=== PATIENT | male | born 1985 | race Caucasian/White ===

== ENCOUNTER 2017-09-01 13:32 | Emergency (ER) ==
[2017-09-01 13:36] VITALS: BP 124/84; TEMP 97.6; BMI 30.7
--- NOTE | 2017-09-01 14:39 | ED.PDOC ---
General ED Provider: Dr. JESSICA HERNANDEZ Chief Complaint: Earache Stated Complaint: right ear pain Time Seen by Physician: 13:35 Mode of Arrival: Walk-In Information Source: Patient Exam Limitations: No limitations Nursing and Triage Documentation Reviewed and Agree: Yes Reviewed sepsis parameters & appropriate labs ordered?: Yes System Inflammatory Response Syndrome: Not Applicable Sepsis Protocol: For patient's 13 years and over: Temp is 96.8 and below OR 101 and greater Pulse >90 BPM Resp >20/minute Acutely Altered Mental Status Are patient's symptoms suggestive of a new infection, such as: -Pneumonia -Skin, Soft Tissue -Endocarditis -UTI -Bone, Joint Infection -Implantable Device -Acute Abdominal Infection -Wound Infection -Meningitis -Blood Stream Catheter Infection -Unknown System Inflammatory Response Syndrome: Not Applicable EENT Complaint Exam - Ear Complaint/Exam Onset/Duration: 1week Symptoms Are: Still present Timing: Intermittent Initial Severity: Moderate Current Severity: Mild Character: Reports: Dull pain Aggravating: Reports: None Alleviating: Reports: None Associated Signs and Symptoms: Denies: Ear trauma, Ear swelling, Discharge, Fever, Hearing loss, Bleeding, Sore throat, Headache, URI symptoms, Foreign body sensation, Rash, Pain to external ear, Pain to external face Ear Surgical History: None Vesicles to External Pinna: No Vesicles to Tragus: No TMJ Tenderness: None Mastoid Tenderness: None Tragal Tenderness: None External Canal: Normal Tympanic Membrane: Erythema (right) Differential Diagnoses: Otitis Media Review of Systems - Review Of Systems Constitutional: Reports: No symptoms Eyes: Reports: No symptoms Ears, Nose, Mouth, Throat: Reports: Ear pain Respiratory: Reports: No symptoms Cardiac: Reports: No symptoms GI: Reports: No symptoms : Reports: No symptoms Musculoskeletal: Reports: No symptoms Skin: Reports: No symptoms Neurological: Reports: No symptoms Endocrine: Reports: No symptoms Hematologic/Lymphatic: Reports: No symptoms All Other Systems: Reviewed and Negative Past Medical History - Past Medical History Previously Healthy: Yes Endocrine: Reports: None Cardiovascular: Reports: None Respiratory: Reports: None Hematological: Reports: None Gastrointestinal: Reports: None Genitourinary: Reports: None Neuro/Psych: Reports: None Musculoskeletal: Reports: None Cancer: Reports: None - Surgical History General Surgical History: Reports: None - Family History Family History: Reports: None - Social History Smoking Status: Current every day smoker, Heavy tobacco smoker Hx Substance Use: No Alcohol Screening: None - Immunizations Tetanus Shot up to Date: No Physical Exam - Physical Exam Appearance: Well-appearing, No pain distress, Well-nourished Eyes: PHILIP, EOMI, Conjunctiva clear ENT: Erythema (right ear, ipartially imacted ) Respiratory: Airway patent, Breath sounds clear, Breath sounds equal, Respirations nonlabored Cardiovascular: RRR, Pulses normal, No rub, No murmur GI/: Soft, Nontender, No masses, Bowel sounds normal, No Organomegaly Musculoskeletal: Normal strength, ROM intact, No edema, No calf tenderness Skin: Warm, Dry, Normal color Neurological: Sensation intact, Motor intact, Reflexes intact, Cranial nerves intact, Alert, Oriented Psychiatric: Affect appropriate, Mood appropriate Critical Care Note - Critical Care Note Total Time (mins): 0 Course - Course Vital Signs: Temp Pulse Resp BP Pulse Ox 09/01/17 13:33 97.6 F 88 16 124/84 96 Departure - Departure Time of Disposition: 14:39 Disposition: HOME SELF-CARE Discharge Problem: Ear infection Instructions: Earache (ED) Condition: Good Pt referred to PMD for follow-up: Yes IPMP verified?: No Additional Instructions: Please call your Family Physician as soon as possible to schedule a follow-up appointment. Allergies/Adverse Reactions: Allergies tetanus and diphtheria toxoids Adverse Reaction (Verified 09/01/17 13:37) tetanus immune globulin Adverse Reaction (Verified 09/01/17 13:37) tetanus toxoid, adsorbed Adverse Reaction (Verified 09/01/17 13:37) Tetanus Vaccines and Toxoid Adverse Reaction (Verified 09/01/17 13:37) Home Medications: Ambulatory Orders 1 [No Reported Medications] 09/01/17
== END 2017-09-01 14:45 | disposition home or self-care (01) ==
LOC: ED 13:32
DX: H66.91 Otitis media, unspecified, right ear (principal); F17.210 Nicotine dependence, cigarettes, uncomplicated
CPT/HCPCS: 99282

== ENCOUNTER 2017-11-27 18:50 | Emergency (ER) ==
[2017-11-27 19:02] VITALS: BP 123/84; TEMP 98.1
[2017-11-27] MEDS ORDERED: DECADRON 4 MG/ML SDV IM STA (19:29)
--- NOTE | 2017-11-27 19:32 | ED.PDOC ---
General ED Provider: Dr. MILLIE RETANA Chief Complaint: Shoulder Pain/Injury Stated Complaint: Patient had Injury to left shoulder in 2013, was treated as tendinitis, it got better,. 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 hurts to raise and move shoulder. Time Seen by Physician: 19:30 Mode of Arrival: Walk-In Information Source: Patient Nursing and Triage Documentation Reviewed and Agree: Yes Does patient meet sepsis criteria?: No If yes, has appropriate treatment been initiated?: No System Inflammatory Response Syndrome: Not Applicable Sepsis Protocol: For patient's 13 years and over: Temp is 96.8 and below OR 101 and greater Pulse >90 BPM Resp >20/minute Acutely Altered Mental Status Are patient's symptoms suggestive of a new infection, such as: -Pneumonia -Skin, Soft Tissue -Endocarditis -UTI -Bone, Joint Infection -Implantable Device -Acute Abdominal Infection -Wound Infection -Meningitis -Blood Stream Catheter Infection -Unknown Musculoskeletal Complaint Exam - Shoulder Pain Complaint/Exam Mechanism of Injury: Reports: No known trauma Symptoms Are: Still present Initial Severity: Moderate Current Severity: Mild Location: Reports: Discrete Character: Reports: Aching, Throbbing Alleviating: Reports: None Aggravating: Reports: Movement, Lifting, Flexion Associated Signs and Symptoms: Denies: Swelling, Redness, Bruising, Fever, Weakness, Numbness, Tingling Related History: Reports: Similar episode Non-Orthopedic Risk Factors: Reports: None DVT Risk Factors: Reports: None Septic Arthritis Risk Factors: Reports: None Related Surgical History: Reports: None Tenderness: Present: AC joint Limited Range of Motion: Present: Abduction, Adduction Differential Diagnoses: Sprain, Bursitis Review of Systems - Review Of Systems Constitutional: Reports: No symptoms Eyes: Reports: No symptoms Ears, Nose, Mouth, Throat: Reports: No symptoms Respiratory: Reports: No symptoms Cardiac: Reports: No symptoms GI: Reports: No symptoms : Reports: No symptoms Musculoskeletal: Reports: Joint pain Skin: Reports: No symptoms Neurological: Reports: No symptoms Endocrine: Reports: No symptoms Hematologic/Lymphatic: Reports: No symptoms All Other Systems: Reviewed and Negative Past Medical History - Past Medical History Previously Healthy: Yes Endocrine: Reports: None Cardiovascular: Reports: None Respiratory: Reports: None Hematological: Reports: None Gastrointestinal: Reports: None Genitourinary: Reports: None Neuro/Psych: Reports: None Musculoskeletal: Reports: None Cancer: Reports: None - Surgical History General Surgical History: Reports: None - Family History Family History: Reports: None - Social History Smoking Status: Current every day smoker, Heavy tobacco smoker Smoking Cessation Counseling Time: > 3 min - 10 min Hx Substance Use: No Alcohol Screening: None Physical Exam - Physical Exam Appearance: Well-appearing, No pain distress, Well-nourished Eyes: PHILIP, EOMI, Conjunctiva clear ENT: Ears normal, Nose normal, Oropharynx normal Respiratory: Airway patent, Breath sounds clear, Breath sounds equal, Respirations nonlabored Cardiovascular: RRR, Pulses normal, No rub, No murmur GI/: Soft, Nontender, No masses, Bowel sounds normal, No Organomegaly Musculoskeletal: Normal strength, ROM intact, No edema, No calf tenderness Skin: Warm, Dry, Normal color Neurological: Sensation intact, Motor intact, Reflexes intact, Cranial nerves intact, Alert, Oriented Psychiatric: Affect appropriate, Mood appropriate Critical Care Note - Critical Care Note Total Time (mins): 30 Course - Course Orders, Labs, Meds: Orders Category Date Time Status Dexamethasone 4 mg/ml Inj [Decadron 4 mg/ml Sdv] MEDS 11/27/17 19:29 Discontinued 4 mg IM ONCE STA Medications Discontinued Medications Generic Name Dose Route Start Last Admin Trade Name Malaika PRN Reason Stop Dose Admin Dexamethasone Sodium Phosphate 4 mg 11/27/17 19:29 Decadron 4 Mg/Ml Sdv IM 11/27/17 19:30 ONCE STA Vital Signs: Temp Pulse Resp BP Pulse Ox 11/27/17 18:58 98.1 F 69 18 123/84 96 Departure - Departure Time of Disposition: 19:33 Disposition: HOME SELF-CARE Discharge Problem: Shoulder pain Instructions: Shoulder Bursitis (ED) Condition: Stable Pt referred to PMD for follow-up: Yes IPMP verified?: No Additional Instructions: Gradual exercise Keep f/u with PMD Prescriptions: Prednisone 10 mg PO BIDWM #14 tablet Allergies/Adverse Reactions: Allergies tetanus and diphtheria toxoids Adverse Reaction (Verified 11/27/17 19:02) tetanus immune globulin Adverse Reaction (Verified 11/27/17 19:02) tetanus toxoid, adsorbed Adverse Reaction (Verified 11/27/17 19:02) Tetanus Vaccines and Toxoid Adverse Reaction (Verified 11/27/17 19:02) Home Medications: Ambulatory Orders Prednisone 10 mg PO BIDWM #14 tablet 11/27/17 Disposition Discussed With: Patient, Family
== END 2017-11-27 20:31 | disposition home or self-care (01) ==
LOC: ED 18:50
DX: M25.512 Pain in left shoulder (principal); F17.210 Nicotine dependence, cigarettes, uncomplicated
CPT/HCPCS: 96372; 99282

== ENCOUNTER 2018-02-04 14:08 | Emergency (ER) ==
[2018-02-04 14:14] VITALS: BP 124/85; TEMP 97.3; BMI 29.0
--- NOTE | 2018-02-04 14:39 | DI ---
Exam: Three views of the left hand. Comparison: None available. Reason for exam: Trauma. FINDINGS: No acute fracture or malalignment. The joint spaces are well maintained. No unexplained calcific soft tissue density or radiopaque retained foreign body. Impression: No acute fracture or malalignment in the left hand.
--- NOTE | 2018-02-04 14:41 | ED.PDOC ---
General ED Provider: Dr. DEBRA BACH-ER Chief Complaint: Hand Pain/Injury Stated Complaint: my hand got smashed when helping a friend with an engine Time Seen by Physician: 14:15 Mode of Arrival: Walk-In Information Source: Patient Exam Limitations: No limitations Nursing and Triage Documentation Reviewed and Agree: Yes Does patient meet sepsis criteria?: No System Inflammatory Response Syndrome: Not Applicable Sepsis Protocol: For patient's 13 years and over: Temp is 96.8 and below OR 101 and greater Pulse >90 BPM Resp >20/minute Acutely Altered Mental Status Are patient's symptoms suggestive of a new infection, such as: -Pneumonia -Skin, Soft Tissue -Endocarditis -UTI -Bone, Joint Infection -Implantable Device -Acute Abdominal Infection -Wound Infection -Meningitis -Blood Stream Catheter Infection -Unknown Musculoskeletal Complaint Exam - Hand/Wrist Complaint/Exam Location of Pain: Reports: Left, Hand Mechanism of Injury: Reports: Trauma Onset/Duration: 18 hr Symptoms Are: Still present Onset of Pain: Reports: Immediate Initial Severity: Mild Current Severity: Mild Location: Reports: Discrete Character: Reports: Dull, Aching Aggravating: Reports: Movement Associated Signs and Symptoms: Reports: Swelling Hand/Wrist Findings: Present: Swelling, Ecchymosis Tenderness: Present: Metacarpal, Phalanx Compartment Syndrome Risk Factors: Present: Pain Differential Diagnoses: Contusion, Closed Fracture Review of Systems - Review Of Systems Constitutional: Reports: No symptoms Eyes: Reports: No symptoms Ears, Nose, Mouth, Throat: Reports: No symptoms Respiratory: Reports: No symptoms Cardiac: Reports: No symptoms GI: Reports: No symptoms : Reports: No symptoms Musculoskeletal: Reports: No symptoms, Muscle pain Skin: Reports: No symptoms Neurological: Reports: No symptoms Endocrine: Reports: No symptoms Hematologic/Lymphatic: Reports: No symptoms All Other Systems: Reviewed and Negative Past Medical History - Past Medical History Previously Healthy: Yes Endocrine: Reports: None Cardiovascular: Reports: None Respiratory: Reports: None Hematological: Reports: None Gastrointestinal: Reports: None Genitourinary: Reports: None Neuro/Psych: Reports: None Musculoskeletal: Reports: None Cancer: Reports: None - Surgical History General Surgical History: Reports: None - Family History Family History: Reports: None - Social History Smoking Status: Current every day smoker, Heavy tobacco smoker Hx Substance Use: No Alcohol Screening: Occasionally - Immunizations Tetanus Shot up to Date: No Physical Exam - Physical Exam Appearance: Well-appearing, No pain distress, Well-nourished Pain Distress: Mild Eyes: PHILIP, EOMI, Conjunctiva clear ENT: Ears normal, Nose normal, Oropharynx normal Neck: Supple Respiratory: Airway patent Cardiovascular: RRR, Pulses normal, No rub, No murmur GI/: Soft, Nontender, No masses, Bowel sounds normal, No Organomegaly Musculoskeletal: Limited ROM Skin: Warm, Dry, Normal color Neurological: Sensation intact, Motor intact, Reflexes intact, Cranial nerves intact, Alert, Oriented Psychiatric: Affect appropriate, Mood appropriate Interpretation - Radiology Interpretation Radiology Interpretation By: Radiologist Radiology Results: Negative Critical Care Note - Critical Care Note Total Time (mins): 0 Course - Course Orders, Labs, Meds: Orders Category Date Time Status HAND, LEFT 3 VIEWS Stat RADS 02/04/18 14:17 Completed Vital Signs: Temp Pulse Resp BP Pulse Ox 02/04/18 14:09 97.3 F L 74 20 124/85 96 Departure - Departure Time of Disposition: 14:43 Disposition: HOME SELF-CARE Discharge Problem: Injury of hand Instructions: Hematoma (ED) Condition: Good Pt referred to PMD for follow-up: Yes IPMP verified?: No Additional Instructions: toradol 10mg qid prn pain #16--ice and elevation---f/u with pcp if not better in 72 hrs Allergies/Adverse Reactions: Allergies tetanus and diphtheria toxoids Adverse Reaction (Verified 02/04/18 14:15) tetanus immune globulin Adverse Reaction (Verified 02/04/18 14:15) tetanus toxoid, adsorbed Adverse Reaction (Verified 02/04/18 14:15) Tetanus Vaccines and Toxoid Adverse Reaction (Verified 02/04/18 14:15) Home Medications: Ambulatory Orders 1 [No Reported Medications] 02/04/18 Disposition Discussed With: Patient
== END 2018-02-04 14:53 | disposition home or self-care (01) ==
LOC: ED 14:08
DX: S60.222A Contusion of left hand, initial encounter (principal); W22.8XXA Striking against or struck by other objects, initial encounter; F17.210 Nicotine dependence, cigarettes, uncomplicated
CPT/HCPCS: 99283

== ENCOUNTER 2018-06-06 12:17 | Emergency (ER) ==
[2018-06-06 12:22] VITALS: BP 139/91; TEMP 99.2; BMI 18.6
--- NOTE | 2018-06-06 13:15 | DI ---
EXAM: CHEST FRONTAL AND LATERAL VIEWS HISTORY: Cough, influenza. COMPARISON: None FINDINGS: Heart size and mediastinal contour within normal limits. No acute infiltrates. Radha l vascularity with no pleural fluid or pneumothorax. The bony thorax has no acute finding. IMPRESSION: No acute process.
--- NOTE | 2018-06-06 13:38 | ED.PDOC ---
General ED Provider: Dr. JESSICA HERNANDEZ Chief Complaint: Respiratory Complaint Stated Complaint: FLU LIKE SYMPTOM Time Seen by Physician: 12:13 (SEEN WITH HERMINIO AT ALL TIMES 2 KIDS ARE FLU A POSITIVE) Mode of Arrival: Walk-In Information Source: Patient Exam Limitations: No limitations Nursing and Triage Documentation Reviewed and Agree: Yes Does patient meet sepsis criteria?: No System Inflammatory Response Syndrome: Not Applicable Sepsis Protocol: For patient's 13 years and over: Temp is 96.8 and below OR 101 and greater Pulse >90 BPM Resp >20/minute Acutely Altered Mental Status Are patient's symptoms suggestive of a new infection, such as: -Pneumonia -Skin, Soft Tissue -Endocarditis -UTI -Bone, Joint Infection -Implantable Device -Acute Abdominal Infection -Wound Infection -Meningitis -Blood Stream Catheter Infection -Unknown EENT Complaint Exam - Throat Complaint/Exam Symptoms Are: Still present Timimg: Intermittent Initial Severity: Mild Current Severity: Mild Aggravating: Reports: None Alleviating: Reports: None Associated Signs and Symptoms: Reports: Cough, Nasal congestion. Denies: Fever , Dysphagia, Drooling, Foreign body sensation, Chills, Wheezing, Hoarseness, Sinus discomfort, Difficulty breathing, Lethargy, Irritability, Decreased activity, Vomiting, Diarrhea, Decreased hearing, Ear drainage Uvula Midline: Yes Kari-tonsillar Fluctuence: No Lesions: Absent: Lip, Gums, Tongue, Buccal Mucosa, Pharynx Review of Systems - Review Of Systems Constitutional: Reports: Chills, Weakness Eyes: Reports: No symptoms Ears, Nose, Mouth, Throat: Reports: Throat pain Respiratory: Reports: Cough Cardiac: Reports: No symptoms GI: Reports: No symptoms : Reports: No symptoms Musculoskeletal: Reports: No symptoms Skin: Reports: No symptoms Neurological: Reports: No symptoms Endocrine: Reports: No symptoms Hematologic/Lymphatic: Reports: No symptoms All Other Systems: Reviewed and Negative Past Medical History - Past Medical History Previously Healthy: Yes Endocrine: Reports: None Cardiovascular: Reports: None Respiratory: Reports: None Hematological: Reports: None Gastrointestinal: Reports: None Genitourinary: Reports: None Neuro/Psych: Reports: None Musculoskeletal: Reports: None Cancer: Reports: None - Surgical History General Surgical History: Reports: None - Family History Family History: Reports: None - Social History Smoking Status: Current every day smoker, Heavy tobacco smoker Hx Substance Use: No Alcohol Screening: Occasionally Physical Exam - Physical Exam Appearance: Well-appearing, No pain distress, Well-nourished Eyes: PHILIP, EOMI, Conjunctiva clear ENT: Ears normal, Nose normal, Oropharynx normal Respiratory: Airway patent, Breath sounds clear, Breath sounds equal, Respirations nonlabored Cardiovascular: RRR, Pulses normal, No rub, No murmur GI/: Soft, Nontender, No masses, Bowel sounds normal, No Organomegaly Musculoskeletal: Normal strength, ROM intact, No edema, No calf tenderness Skin: Warm, Dry, Normal color Neurological: Sensation intact, Motor intact, Reflexes intact, Cranial nerves intact, Alert, Oriented Psychiatric: Affect appropriate, Mood appropriate Critical Care Note - Critical Care Note Total Time (mins): 0 Course - Course Orders, Labs, Meds: Lab Review 06/06/18 12:33 Influ A Molecular Assay Negative by naat Influ B Molecular Assay Negative by naat Orders Category Date Time Status FLU A/B MOLECULAR Stat LAB 06/06/18 12:31 Uncollected MOLECULAR GROUP A STREP Stat LAB 06/06/18 12:31 Uncollected CHEST, 2 VIEWS PA & LAT Stat RADS 06/06/18 12:31 Ordered Vital Signs: Temp Pulse Resp BP Pulse Ox 06/06/18 12:18 99.2 F 91 H 20 139/91 H 97 Departure - Departure Time of Disposition: 13:37 Disposition: HOME SELF-CARE Discharge Problem: Viral syndrome Instructions: Viral Syndrome (ED) Condition: Good Pt referred to PMD for follow-up: Yes IPMP verified?: No Additional Instructions: Please call your Family Physician as soon as possible to schedule a follow-up appointment. Allergies/Adverse Reactions: Allergies tetanus and diphtheria toxoids Adverse Reaction (Verified 06/06/18 12:22) tetanus immune globulin Adverse Reaction (Verified 06/06/18 12:22) tetanus toxoid, adsorbed Adverse Reaction (Verified 06/06/18 12:22) Tetanus Vaccines and Toxoid Adverse Reaction (Verified 06/06/18 12:22) Home Medications: Ambulatory Orders 1 [No Reported Medications] 02/04/18
== END 2018-06-06 13:45 | disposition home or self-care (01) ==
LOC: ED 12:17
DX: B34.9 Viral infection, unspecified (principal); F17.210 Nicotine dependence, cigarettes, uncomplicated
CPT/HCPCS: 87502; 87651; 99283

== ENCOUNTER 2018-06-22 10:07 | Emergency (ER) ==
[2018-06-22 10:13] VITALS: BP 106/71; TEMP 97; BMI 28.2
--- NOTE | 2018-06-22 12:07 | DI ---
EXAM: LEFT SHOULDER HISTORY: Injury, pain FINDINGS: Left shoulder three-view. Bone and joint structures are within normal limits. There is n o joint dislocation or fracture identified. Bone density and soft tissues are unremarkable. IMPRESSION: Within normal limits.
--- NOTE | 2018-06-22 12:07 | DI ---
EXAM: LEFT ELBOW HISTORY: Injury, pain FINDINGS: Left elbow three-view. Bone and joint structures appear normal. There is no joint disloc ation or effusion. No fracture is identified. Bone density and soft tissues are within normal limit s. IMPRESSION: Findings within normal limits.
--- NOTE | 2018-06-22 12:14 | ED.PDOC ---
General ED Provider: Dr. JESSICA HERNANDEZ Chief Complaint: Shoulder Pain/Injury Stated Complaint: left shoulder , right elbow pain after a work related injury Time Seen by Physician: 10:10 Mode of Arrival: Walk-In Information Source: Patient Exam Limitations: No limitations Nursing and Triage Documentation Reviewed and Agree: Yes Does patient meet sepsis criteria?: No System Inflammatory Response Syndrome: Not Applicable Sepsis Protocol: For patient's 13 years and over: Temp is 96.8 and below OR 101 and greater Pulse >90 BPM Resp >20/minute Acutely Altered Mental Status Are patient's symptoms suggestive of a new infection, such as: -Pneumonia -Skin, Soft Tissue -Endocarditis -UTI -Bone, Joint Infection -Implantable Device -Acute Abdominal Infection -Wound Infection -Meningitis -Blood Stream Catheter Infection -Unknown Musculoskeletal Complaint Exam - Upper Extremity Complaint/Exam Location of Pain: Reports: Left, Shoulder, Elbow (right) Mechanism of Injury: Reports: Trauma Onset/Duration: 1 day Symptoms Are: Still present Timing: Intermittent Episodes Lasting: Hours Initial Severity: Mild Current Severity: Mild Location: Reports: Discrete (shoulder and elbow ) Character: Reports: Dull Aggravating: Reports: Movement, Lifting, Flexion, Extension, Internal rotation, External rotation, Abduction Alleviating: Reports: Rest Related History: Reports: Similar episode DVT Risk Factors: Reports: None Septic Arthritis Risk Factors: Reports: None Related Surgical History: Reports: None Upper Extremity Findings: Absent: Swelling, Ecchymosis, Abnormal contour, Rotation, Ligamentous instability, Laceration, Erythema, Warmth, Blisters, Other joint pain Differential Diagnoses: Closed Fracure Review of Systems - Review Of Systems Constitutional: Reports: No symptoms Eyes: Reports: No symptoms Ears, Nose, Mouth, Throat: Reports: No symptoms Respiratory: Reports: No symptoms Cardiac: Reports: No symptoms GI: Reports: No symptoms : Reports: No symptoms Musculoskeletal: Reports: Joint pain (elbow /shoulder right /left) Skin: Reports: No symptoms Neurological: Reports: No symptoms Endocrine: Reports: No symptoms Hematologic/Lymphatic: Reports: No symptoms All Other Systems: Reviewed and Negative Past Medical History - Past Medical History Previously Healthy: Yes Endocrine: Reports: None Cardiovascular: Reports: None Respiratory: Reports: None Hematological: Reports: None Gastrointestinal: Reports: None Genitourinary: Reports: None Neuro/Psych: Reports: None Musculoskeletal: Reports: None Cancer: Reports: None - Surgical History General Surgical History: Reports: None - Family History Family History: Reports: None - Social History Smoking Status: Current every day smoker, Heavy tobacco smoker Hx Substance Use: No Alcohol Screening: None Physical Exam - Physical Exam Appearance: Well-appearing, No pain distress, Well-nourished Eyes: PHILIP, EOMI, Conjunctiva clear ENT: Ears normal, Nose normal, Oropharynx normal Respiratory: Airway patent, Breath sounds clear, Breath sounds equal, Respirations nonlabored Cardiovascular: RRR, Pulses normal, No rub, No murmur GI/: Soft, Nontender, No masses, Bowel sounds normal, No Organomegaly Musculoskeletal: Normal strength, ROM intact, No edema, No calf tenderness Skin: Warm, Dry, Normal color Neurological: Sensation intact, Motor intact, Reflexes intact, Cranial nerves intact, Alert, Oriented Psychiatric: Affect appropriate, Mood appropriate Interpretation - Radiology Interpretation Radiology Interpretation By: Radiologist Radiology Results: No acute changes Critical Care Note - Critical Care Note Total Time (mins): 0 Course - Course Orders, Labs, Meds: Orders Category Date Time Status ELBOW, RIGHT MIN 3 VIEWS Stat RADS 06/22/18 11:39 Completed SHOULDER, LEFT MIN 2V Stat RADS 06/22/18 11:39 Completed Vital Signs: Temp Pulse Resp BP Pulse Ox 06/22/18 10:09 97.0 F L 70 20 106/71 96 Departure - Departure Time of Disposition: 12:15 Disposition: HOME SELF-CARE Discharge Problem: Shoulder pain, Elbow pain, right Instructions: Shoulder Sprain (ED), Elbow Sprain (ED) Condition: Good Pt referred to PMD for follow-up: Yes IPMP verified?: No Additional Instructions: Please call your Family Physician as soon as possible to schedule a follow-up appointment. Allergies/Adverse Reactions: Allergies tetanus and diphtheria toxoids Adverse Reaction (Verified 06/22/18 10:13) tetanus immune globulin Adverse Reaction (Verified 06/22/18 10:13) tetanus toxoid, adsorbed Adverse Reaction (Verified 06/22/18 10:13) Tetanus Vaccines and Toxoid Adverse Reaction (Verified 06/22/18 10:13) Home Medications: Ambulatory Orders 1 [No Reported Medications] 02/04/18 Disposition Discussed With: Patient
== END 2018-06-22 12:29 | disposition home or self-care (01) ==
LOC: ED 10:07
DX: M25.512 Pain in left shoulder (principal); M25.521 Pain in right elbow; F17.210 Nicotine dependence, cigarettes, uncomplicated
CPT/HCPCS: 99282

== ENCOUNTER 2018-09-04 22:34 | Emergency (ER) ==
[2018-09-04 22:37] VITALS: BMI 27.9
[2018-09-04] MEDS ORDERED: MOTRIN PO STA (22:47)
--- NOTE | 2018-09-04 23:36 | ED.PDOC ---
General ED Provider: Dr. DEBRA BACH-ER Chief Complaint: Sore Throat Stated Complaint: my throat hurts Time Seen by Physician: 22:40 Mode of Arrival: Walk-In Information Source: Patient Exam Limitations: No limitations Nursing and Triage Documentation Reviewed and Agree: Yes Does patient meet sepsis criteria?: No System Inflammatory Response Syndrome: Not Applicable Sepsis Protocol: For patient's 13 years and over: Temp is 96.8 and below OR 101 and greater Pulse >90 BPM Resp >20/minute Acutely Altered Mental Status Are patient's symptoms suggestive of a new infection, such as: -Pneumonia -Skin, Soft Tissue -Endocarditis -UTI -Bone, Joint Infection -Implantable Device -Acute Abdominal Infection -Wound Infection -Meningitis -Blood Stream Catheter Infection -Unknown EENT Complaint Exam - Throat Complaint/Exam Onset/Duration: 24 hrs Symptoms Are: Still present Initial Severity: Mild Current Severity: Moderate Aggravating: Reports: Eating Alleviating: Reports: Antipyretics Associated Signs and Symptoms: Reports: Fever, Chills, Nasal congestion Uvula Midline: Yes Kari-tonsillar Fluctuence: No Scarlatinaform Rash Present: No Exanthem: Present: Pharynx Stridor Present: No Sinus Tenderness Present: No Tonsillar Hypertrophy Present: No Tonsillar Exudate Present: No Kari-tonsillar Swelling Present: No Adenopathy Present: Yes Splenomegaly Present: No Differential Diagnoses: Pharyngitis Review of Systems - Review Of Systems Constitutional: Reports: Chills, Fever Eyes: Reports: No symptoms Ears, Nose, Mouth, Throat: Reports: Throat pain Respiratory: Reports: No symptoms Cardiac: Reports: No symptoms GI: Reports: No symptoms : Reports: No symptoms Musculoskeletal: Reports: No symptoms Skin: Reports: No symptoms Neurological: Reports: No symptoms Endocrine: Reports: No symptoms Hematologic/Lymphatic: Reports: No symptoms All Other Systems: Reviewed and Negative Past Medical History - Past Medical History Previously Healthy: Yes Endocrine: Reports: None Cardiovascular: Reports: None Respiratory: Reports: None Hematological: Reports: None Gastrointestinal: Reports: None Genitourinary: Reports: None Neuro/Psych: Reports: None Musculoskeletal: Reports: None Cancer: Reports: None - Surgical History General Surgical History: Reports: None - Family History Family History: Reports: None - Social History Smoking Status: Former smoker, Vaping Hx Substance Use: No Alcohol Screening: None - Immunizations Tetanus Shot up to Date: No Physical Exam - Physical Exam Appearance: Well-appearing, No pain distress, Well-nourished Pain Distress: Mild Eyes: PHILIP, EOMI, Conjunctiva clear ENT: Rhinorrhea, Erythema Neck: Supple Respiratory: Airway patent, Breath sounds clear, Breath sounds equal, Respirations nonlabored Cardiovascular: RRR, Pulses normal, No rub, No murmur GI/: Soft, Nontender, No masses, Bowel sounds normal, No Organomegaly Musculoskeletal: Normal strength Skin: Warm, Dry, Normal color Neurological: Sensation intact, Motor intact, Reflexes intact, Cranial nerves intact, Alert, Oriented Psychiatric: Affect appropriate, Mood appropriate Critical Care Note - Critical Care Note Total Time (mins): 0 Course - Course Hematology/Chemistry: 09/04/18 22:55 09/04/18 22:55 Orders, Labs, Meds: Lab Review 09/04/18 09/04/18 09/04/18 22:45 22:50 22:55 WBC 7.78 RBC 4.77 Hgb 15.2 Hct 44.3 MCV 92.9 MCH 31.9 H MCHC 34.3 RDW Coeff of Halina 12.9 Plt Count 190 Immature Gran % (Auto) 0.4 Neut % (Auto) 73.6 Lymph % (Auto) 13.5 [place] % (Auto) 10.7 H Eos % (Auto) 1.3 Baso % (Auto) 0.5 Immature Gran # (Auto) 0.0 Neut # (Auto) 5.7 Lymph # (Auto) 1.1 [place] # (Auto) 0.8 Eos # (Auto) 0.1 Baso # (Auto) 0.0 Sodium Potassium Chloride Carbon Dioxide Anion Gap BUN Creatinine Estimated GFR (MDRD) BUN/Creatinine Ratio Glucose Calcium Total Bilirubin AST ALT Alkaline Phosphatase Total Protein Albumin Globulin Albumin/Globulin Ratio Infectious [place] Assay Negative Influ A Molecular Assay Negative by naat Influ B Molecular Assay Negative by naat 09/04/18 22:55 WBC RBC Hgb Hct MCV MCH MCHC RDW Coeff of Halina Plt Count Immature Gran % (Auto) Neut % (Auto) Lymph % (Auto) [place] % (Auto) Eos % (Auto) Baso % (Auto) Immature Gran # (Auto) Neut # (Auto) Lymph # (Auto) [place] # (Auto) Eos # (Auto) Baso # (Auto) Sodium 138.0 Potassium 3.58 Chloride 104.1 Carbon Dioxide 21.9 L Anion Gap 15.58 BUN 13.2 Creatinine 1.03 Estimated GFR (MDRD) 83.00 BUN/Creatinine Ratio 12.81 Glucose 144.5 H Calcium 9.58 Total Bilirubin 0.57 AST 37.8 ALT 45.1 Alkaline Phosphatase 69.0 Total Protein 7.18 Albumin 4.84 Globulin 2.34 Albumin/Globulin Ratio 2.06 Infectious [place] Assay Influ A Molecular Assay Influ B Molecular Assay Orders Category Date Time Status CBC W/ AUTO DIFF Stat LAB 09/04/18 22:55 Completed COMPREHENSIVE METABOLIC PANEL Stat LAB 09/04/18 22:55 Completed FLU A/B MOLECULAR Stat LAB 09/04/18 22:45 Completed MOLECULAR GROUP A STREP Stat LAB 09/04/18 22:45 Completed MONONUCLOSIS SCREEN Stat LAB 09/04/18 22:50 Completed Ibuprofen [Motrin] MEDS 09/04/18 22:47 Discontinued 800 mg PO ONCE STA Medications Discontinued Medications Generic Name Dose Route Start Last Admin Trade Name Freq PRN Reason Stop Dose Admin Ibuprofen 800 mg 09/04/18 22:47 09/04/18 22:56 Motrin PO 09/04/18 22:48 800 mg ONCE STA Administration Vital Signs: Temp Pulse Resp BP Pulse Ox 09/04/18 22:35 101.6 F H 98 H 18 124/76 94 L Departure - Departure Time of Disposition: 23:36 Disposition: HOME SELF-CARE Discharge Problem: Sore throat symptom Instructions: Pharyngitis (ED) Condition: Good Pt referred to PMD for follow-up: Yes IPMP verified?: No Additional Instructions: augmentin 875mg bid x 7 days---motrin for pain and temp---recheck in 48hrs if not better Allergies/Adverse Reactions: Allergies tetanus and diphtheria toxoids Adverse Reaction (Verified 09/04/18 22:37) tetanus immune globulin Adverse Reaction (Verified 09/04/18 22:37) tetanus toxoid, adsorbed Adverse Reaction (Verified 09/04/18 22:37) Tetanus Vaccines and Toxoid Adverse Reaction (Verified 09/04/18 22:37) Home Medications: Ambulatory Orders Amoxicillin/Potassium Clav [Augmentin 875-125 mg Tab] 1 tab PO Q12HR #20 tablet 09/04/18 Disposition Discussed With: Patient
[2018-09-05 00:39] VITALS: BP 122/79; TEMP 99.2
== END 2018-09-04 23:45 | disposition home or self-care (01) ==
LOC: ED 22:34
DX: J02.9 Acute pharyngitis, unspecified (principal)
CPT/HCPCS: 36415; 80053; 85025; 86308; 87502; 87651; 99283

== ENCOUNTER 2018-09-25 09:49 | Emergency (ER) ==
[2018-09-25 09:59] VITALS: BMI 29.1
[2018-09-25] MEDS ORDERED: TORADOL PO STA (11:41)
--- NOTE | 2018-09-25 11:47 | ED.PDOC ---
General ED Provider: Dr. DEBRA REYES Chief Complaint: Shoulder Pain/Injury Stated Complaint: Lt shoulder pain; Body aches. Experiencing sensation of fever and chills at home. Denied cough or congestion Time Seen by Physician: 11:30 Mode of Arrival: Walk-In Information Source: Patient Exam Limitations: No limitations Nursing and Triage Documentation Reviewed and Agree: Yes Does patient meet sepsis criteria?: No System Inflammatory Response Syndrome: Not Applicable Sepsis Protocol: For patient's 13 years and over: Temp is 96.8 and below OR 101 and greater Pulse >90 BPM Resp >20/minute Acutely Altered Mental Status Are patient's symptoms suggestive of a new infection, such as: -Pneumonia -Skin, Soft Tissue -Endocarditis -UTI -Bone, Joint Infection -Implantable Device -Acute Abdominal Infection -Wound Infection -Meningitis -Blood Stream Catheter Infection -Unknown Musculoskeletal Complaint Exam - Shoulder Pain Complaint/Exam Mechanism of Injury: Reports: Other (None recent) Onset/Duration: for several months-no recent injury Symptoms Are: Still present Timing: Constant (with intermittent worsening- worked last night but denies new injurt) Initial Severity: Moderate Current Severity: Mild Location: Reports: Discrete Character: Reports: Dull, Aching Alleviating: Reports: Rest Aggravating: Reports: None Associated Signs and Symptoms: Denies: Swelling, Redness, Bruising, Fever, Weakness, Numbness, Tingling Related History: Reports: Similar episode DVT Risk Factors: Reports: None Septic Arthritis Risk Factors: Reports: None Related Surgical History: Reports: None Shoulder Findings: Present: Other joint pain. Absent: Swelling, Ecchymosis, Abnormal contour, Rotation, Ligamentous instability, Laceration, Erythema, Warmth, Foreign body Tenderness: Present: AC joint Limited Range of Motion: Present: Internal rotation, Rotator cuff muscles Differential Diagnoses: AC Seperation, Rotator Cuff Injury, Other (chronic strain) Review of Systems - Review Of Systems Constitutional: Reports: No symptoms, Chills, Fever Eyes: Reports: No symptoms Ears, Nose, Mouth, Throat: Reports: No symptoms Respiratory: Reports: No symptoms Cardiac: Reports: No symptoms GI: Reports: No symptoms : Reports: No symptoms Musculoskeletal: Reports: Joint pain Skin: Reports: No symptoms Neurological: Reports: No symptoms Endocrine: Reports: No symptoms Hematologic/Lymphatic: Reports: No symptoms All Other Systems: Reviewed and Negative Past Medical History - Past Medical History Previously Healthy: Yes Endocrine: Reports: None Cardiovascular: Reports: None Respiratory: Reports: None Hematological: Reports: None Gastrointestinal: Reports: None Genitourinary: Reports: None Neuro/Psych: Reports: None Musculoskeletal: Reports: None Cancer: Reports: None - Surgical History General Surgical History: Reports: None - Family History Family History: Reports: None - Social History Smoking Status: Vaping Hx Substance Use: No Alcohol Screening: Occasionally - Immunizations Tetanus Shot up to Date: No Physical Exam - Physical Exam Appearance: Well-appearing, No pain distress, Well-nourished Ill-appearing: None Pain Distress: None Eyes: PHILIP, EOMI, Conjunctiva clear ENT: Ears normal, Nose normal, Oropharynx normal Neck: Supple Respiratory: Airway patent, Breath sounds clear, Breath sounds equal, Respirations nonlabored Cardiovascular: RRR, Pulses normal, No rub, No murmur GI/: Soft, Nontender, No masses, Bowel sounds normal, No Organomegaly Musculoskeletal: Normal strength, No edema, No calf tenderness, Limited ROM (lt shoulder) Skin: Warm, Dry, Normal color Neurological: Sensation intact, Motor intact, Reflexes intact, Cranial nerves intact, Alert, Oriented Psychiatric: Affect appropriate, Mood appropriate Critical Care Note - Critical Care Note Total Time (mins): 0 Course - Course Hematology/Chemistry: 09/25/18 12:28 09/25/18 12:28 Orders, Labs, Meds: Lab Review 09/25/18 09/25/18 09/25/18 12:28 12:28 12:28 WBC 6.11 RBC 4.92 Hgb 15.5 Hct 44.8 MCV 91.1 MCH 31.5 H MCHC 34.6 RDW Coeff of Halina 12.8 Plt Count 222 Immature Gran % (Auto) 0.2 Neut % (Auto) 54.2 Lymph % (Auto) 33.6 [place] % (Auto) 9.5 Eos % (Auto) 2.0 Baso % (Auto) 0.5 Immature Gran # (Auto) 0.0 Neut # (Auto) 3.3 Lymph # (Auto) 2.1 [place] # (Auto) 0.6 Eos # (Auto) 0.1 Baso # (Auto) 0.0 Sodium 138.2 Potassium 3.53 Chloride 101.6 Carbon Dioxide 26.3 Anion Gap 13.83 BUN 19.9 Creatinine 0.93 Estimated GFR (MDRD) 93.00 BUN/Creatinine Ratio 21.39 Glucose 87.5 Calcium 10.06 Influ A Molecular Assay Negative by naat Influ B Molecular Assay Negative by naat Orders Category Date Time Status BMP [BASIC METABOLIC PANEL] Stat LAB 09/25/18 12:28 Completed CBC W/ AUTO DIFF Stat LAB 09/25/18 12:28 Completed FLU A & B MOLECULAR [FLU A/B MOLECULAR] Stat LAB 09/25/18 12:28 Completed Ketorolac Tromethamine [Toradol] MEDS 09/25/18 11:41 Discontinued 10 mg PO ONCE STA AC JOINTS, BILATERAL Stat RADS 09/25/18 11:41 Completed SHOULDER, LEFT MIN 2V Stat RADS 09/25/18 11:41 Completed Medications Discontinued Medications Generic Name Dose Route Start Last Admin Trade Name Freq PRN Reason Stop Dose Admin Ketorolac Tromethamine 10 mg 09/25/18 11:41 09/25/18 11:49 Toradol PO 09/25/18 11:42 10 mg ONCE STA Administration Vital Signs: Temp Pulse Resp BP Pulse Ox 09/25/18 09:50 101.6 F H 88 18 130/75 93 L Departure - Departure Time of Disposition: 13:00 Disposition: HOME SELF-CARE Discharge Problem: Chronic left shoulder pain, Osteoarthritis of left acromioclavicular joint Instructions: Osteoarthritis (ED), Acromioclavicular Separation (ED) Condition: Good Pt referred to PMD for follow-up: Yes (See property management specialist) IPMP verified?: No Additional Instructions: Ice for pain for additional pain control Follow up orthopedics for additional evaluation and treatment Ibuprofen for pain as needed Allergies/Adverse Reactions: Allergies tetanus and diphtheria toxoids Adverse Reaction (Verified 09/25/18 10:02) tetanus immune globulin Adverse Reaction (Verified 09/25/18 10:02) tetanus toxoid, adsorbed Adverse Reaction (Verified 09/25/18 10:02) Tetanus Vaccines and Toxoid Adverse Reaction (Verified 09/25/18 10:02) Home Medications: Ambulatory Orders 1 [No Reported Medications] 09/25/18 Disposition Discussed With: Family
--- NOTE | 2018-09-25 12:09 | DI ---
EXAM: Left shoulder three view HISTORY: Left shoulder pain COMPARISON: 06/22/2018 FINDINGS: No fracture or dislocation. Mild osteoarthritis acromioclavicular joint with joint space narrowing osteophyte formation. Glenohumeral joint appears normal. No focal soft tissue abnormality. IMPERSSION: Mild osteoarthritis acromioclavicular joint.
--- NOTE | 2018-09-25 12:11 | DI ---
EXAM: Acromioclavicular joints, with and without weights HISTORY: History of left acromioclavicular injury, chronic left shoulder pain COMPARISON: None TECHNIQUE: Two views acromioclavicular joints were performed, with and without weights. FINDINGS: No fracture or dislocation. No evidence for widening of the acromioclavicular joints with or without weights. Mild osteoarthritis bilateral acromioclavicular joints with small osteophyte fo rmation, slightly greater than left. IMPRESSION: Mild osteoarthritis acromioclavicular joints.
[2018-09-25 13:12] VITALS: BP 120/76; TEMP 98.8
== END 2018-09-25 13:17 | disposition home or self-care (01) ==
LOC: ED 09:49
DX: M25.512 Pain in left shoulder (principal); R50.9 Fever, unspecified; M25.50 Pain in unspecified joint; M19.012 Primary osteoarthritis, left shoulder
CPT/HCPCS: 36415; 80048; 85025; 87502; 99282